=== PATIENT | female | born 1990 | race Hispanic/Latino ===

== ENCOUNTER 2018-05-09 06:52 | Outpatient (CLI) | payer BC | END 2018-05-09 06:53 | disposition home or self-care (01) | LOC: BICULT 06:52 | PROVIDERS: ATTEND Student in an Organized Health Care Education/Training Program | DX: O20.9 Hemorrhage in early pregnancy, unspecified (principal); O34.81 Maternal care for other abnormalities of pelvic organs, first trimester; Z3A.09 9 weeks gestation of pregnancy | CPT/HCPCS: 76856; 93976 ==

== ENCOUNTER 2018-12-05 13:54 | Inpatient (IN) | payer BC, OTHER ==
[2018-12-05] MEDS ORDERED: Misoprostol 200 MCG TAB PR PRN (14:30)
[2018-12-05] MEDS ORDERED: Ibuprofen 800 MG TAB PO PRN (14:30)
[2018-12-05] MEDS ORDERED: HYDROcodone/Acetaminophen 5/325 mg Tablet PO PRN ×2 (14:30)
[2018-12-05] MEDS ORDERED: Lactated Ringer's 1,000 ML IV SCH (14:30)
[2018-12-05] MEDS ORDERED: Diphenoxylate HCl/Atropine Tablet PO PRN ×2 (14:30)
[2018-12-05] MEDS ORDERED: Methylergonovine 0.2 MG/ML VIAL IM PRN (14:30)
[2018-12-05] MEDS ORDERED: NS w/ Oxytocin 10 units 500 ML IV SCH ×2 (14:30→21:00)
[2018-12-05] MEDS ORDERED: Ondansetron PF 4 MG/2 ML Vial IVP PRN ×2 (14:30→21:17)
[2018-12-05] MEDS ORDERED: Lidocaine 1% (PF) 30 ML VIAL SC PRN (14:30)
[2018-12-05] MEDS ORDERED: Carboprost 250 MCG/ML AMP IM PRN (14:30)
[2018-12-05] MEDS ORDERED: NS / Oxytocin 40 units/1000ml 1,000 ML IV PRN (14:30)
[2018-12-05] MEDS ORDERED: Acetaminophen 500 MG TAB PO PRN (14:30)
[2018-12-05] MEDS ORDERED: Promethazine HCl 25 MG/ML VIAL IM PRN ×2 (14:30→21:17)
[2018-12-05] MEDS ORDERED: Butorphanol Tartrate 1 MG/ML VIAL SLOW IVP PRN (14:30)
[2018-12-05 14:51] LABS: Hemoglobin 13.9 g/dL (12.0-16.0); Mean Corpuscular Hemoglobin 29.9 pg (27.0-31.0); Mean Corpuscular Volume 88.1 fL (78.0-98.0); Mean Platelet Volume 8.4 fL (7.4-10.4); Platelet Count 255 thou/uL (130-400); RBC Distribution Width 13.3 % (11.5-14.5); Red Blood Cell (RBC) Count 4.66 mill/uL (4.20-5.40); White Blood Cell (WBC) Count 13.5 thou/uL (4.8-10.8)
[2018-12-05 15:09] VITALS: BMI 42.0
[2018-12-05 15:28] LABS: HBSAg Index 0.19 S/CO (0-0.99); Hep B Surf Ag Non-Reactive S/CO (NonReactive); Syphilis Antibody Nonreactive (Nonreactive); Syphilis Antibody Index 0.05 S/CO (<1.00 Non-Reactive)
--- NOTE | 2018-12-05 15:42 | PDOC.LDHP ---
Labor and Delivery H&P Chief complaint: contractions, loss of fluid HPI: 28yo at 39w by LMP c/o LOF clear at 1200, painful ctx q 5-8min. Prior LTCS x 1 for FTP 7 yr ago Current gestational age (weeks): 39 Due date: 12/10/18 Dating criteria: last menstrual period Grav: 2 Para: 1 Current complications: none Abnormal US findings: No Past Medical History: hypothyroid Current medications: pre-alecai vitamins, other (levothyroxine 50mcg) Previous surgical history: low tranverse CS, other (oophorectomy) Allergies/Adverse Reactions: Allergies Allergy/AdvReac Type Severity Reaction Status Date / Time No Known Allergies Allergy Verified 06/26/13 15:40 Social history: none - Physical Exam Vital signs reviewed and normal: yes General: NAD Heart: RRR Lungs: CTAB Abdomen: gravid Extremeties: no edema FHT: category 1 [place] contractions every: 3-5min - Vaginal Exam cm dilated: 1 Effacement: 25% Station: -2 (dilapan x5 placed in cervical os under direct visualization) - OB Labs Blood type: O RH: positive Antibody Screen: negative HIV: negative RPR: negative HEPSAg: negative 1 hour GCT: negative GBS: negative Urine drug screen: negative Rubella: immune - Assessment L&D Assessment: term rupture in membranes - Plan Plan: admit to L&D, cervical ripening (with dilapan x 12 hr), labor augmentation if indicated, informed consent obtained, anesthesia consult for pain management -: Pt desires TOLAC, disc risk of uterine rupture of <1% and <2% with use of pitocin. Pt understands and wishes to proceed. consent signed.
[2018-12-05] MEDS ORDERED: Fentanyl 4 mcg/Bup 0.1% Cadd 100 ML ONE ×2 (20:30→20:38)
[2018-12-05] MEDS ORDERED: Acetaminophen 325 MG TAB PO PRN (21:17)
[2018-12-05] MEDS ORDERED: Naloxone HCl 0.4 mg/ml Vial IVP PRN ×2 (21:17)
[2018-12-05] MEDS ORDERED: diphenhydrAMINE 50 MG/ML VIAL IVP PRN (21:17)
[2018-12-05] MEDS ORDERED: Eucerin (Mineral Oil/Petrolatum,White) 30 gm Jar TOP PRN (21:17)
[2018-12-05] MEDS ORDERED: ePHEDrine/0.9% NaCl/PF SYRINGE 50 mg/10 ml SLOW IVP PRN (21:17)
[2018-12-05] MEDS ORDERED: Lactated Ringer's 500 ML IV PRN (21:17)
[2018-12-05] MEDS ORDERED: Communication Order-Pharmacy FS SCH (21:30)
[2018-12-05] MEDS ORDERED: Fentanyl 4 mcg/Bupivacaine 0.1% Cassette 100 ML EPIDURAL SCH (21:30)
[2018-12-06] MEDS ORDERED: Fentanyl 4 mcg/Bup 0.1% Cadd 100 ML ONE ×2 (04:11→13:05)
--- NOTE | 2018-12-06 08:02 | PDOC.LDPN ---
Labor & Delivery Progress Note - Subjective Subjective: comfortable - Objective Vital signs reviewed and normal: yes General: NAD Uterine fundus: non tender Dilation: 5 Effacement: 90% Station: 0 FHT: category 2 (intermittent min variability, then resumes moderate variability with accel c/w sleep cycle) IUPC placed: yes Plan: continue plan of care (cont pitocin augmentation. no e/o chorio, tmax 99)
[2018-12-06] MEDS ORDERED: Lidocaine 2% MPF 10 ML AMP (For Epidural Use) ONE (11:11)
[2018-12-06] MEDS ORDERED: Bupivacaine/Epinephrine 0.25% 30 ML VIAL ONE (11:11)
--- NOTE | 2018-12-06 13:19 | PDOC.LDPN ---
Labor & Delivery Progress Note - Subjective Subjective: comfortable, vaginal pressure - Objective Vital signs reviewed and normal: yes General: NAD Uterine fundus: non tender Dilation: 10 Effacement: 100% Station: 0 FHT: category 1 [place] contractions every: 3min Plan: continue plan of care (labor down x 30min then start pushing)
[2018-12-06] MEDS ORDERED: NS / Oxytocin 40 units/1000ml 1,000 ML ONE (13:44)
[2018-12-06] MEDS ORDERED: Ampicillin 2 GM in Sodium Chloride 0.9% 100 ML IVPB SCH (16:30)
--- NOTE | 2018-12-06 17:50 | PDOC.OPDEL ---
OB Operative/Delivery Note Delivery Dr/Surgeon: Harsh Assist: n/a Pre-Delivery Diagnosis: non-reassuring tracing, ruptured membrane Procedure/Post Delivery Dx: operative vaginal delivery () Weeks gestation: 39 Anesthesia: epidural - Findings A Sex: female Weight: 8 lb 7 oz - 1 min: 8 - 5 min: 9 - Additional Findings/Plan Placenta delivered: spontaneous Repaired Obstetrical Laceration: 3rd degree (repaired in end to end fashion with 2-0 vicryl then usual second degree repair with 2-0 vicryl, excellent hemostasis) Estimated blood loss: 951 Post delivery plan: routine recovery
[2018-12-06] MEDS ORDERED: CEFAZOLIN 2 GM in Premix Bag 1 BAG IVPB SCH (18:00)
[2018-12-06] MEDS ORDERED: Preparation H Ointment 28 GM TUBE PR PRN (18:04)
[2018-12-06] MEDS ORDERED: Lanolin Ointment 7 GM TUBE TOP PRN (18:04)
[2018-12-06] MEDS ORDERED: diphenhydrAMINE 25 MG CAP PO PRN (18:04)
[2018-12-06] MEDS ORDERED: NS / Oxytocin 40 units/1000ml 1,000 ML IV SCH (18:04)
[2018-12-06] MEDS ORDERED: Promethazine HCl 25 MG/ML VIAL IM PRN (18:04)
[2018-12-06] MEDS ORDERED: Adacel (T-DAP) 0.5 ML SYRINGE IM ONE (18:04)
[2018-12-06] MEDS ORDERED: HYDROcodone/Acetaminophen 5/325 mg Tablet PO PRN ×2 (18:04)
[2018-12-06] MEDS ORDERED: Bisacodyl 10 MG SUPP PR PRN (18:04)
[2018-12-06] MEDS ORDERED: Benzocaine/Menthol 20-0.5% 60 ML CAN TOP PRN (18:04)
[2018-12-06] MEDS ORDERED: Ondansetron PF 4 MG/2 ML Vial IVP PRN (18:04)
[2018-12-06] MEDS ORDERED: Milk Of Magnesia 30 ML UDCUP PO PRN (18:04)
[2018-12-06] MEDS: Docusate Calcium (SURFAK) 240 MG CAP PO SCH (21:39)
[2018-12-06] MEDS: Ibuprofen 800 MG TAB PO SCH (21:39)
[2018-12-07] MEDS: Ibuprofen 800 MG TAB PO SCH ×3 (05:42→22:00)
--- NOTE | 2018-12-07 07:49 | PDOC.PP ---
Post Progress Note Post Day #: 1 PO intake tolerated: yes Flatus: yes Ambulation: yes Vital Signs (12 hours) Temp Pulse Resp BP Pulse Ox 12/07/18 04:40 97.8 F 93 18 106/56 L 12/07/18 00:39 98.0 F 87 18 96/58 L 12/06/18 21:00 98.2 F 101 H 18 112/55 L 12/06/18 20:00 98.7 F 102 H 18 105/71 97 Weight Weight 230 lb - Physical Examination General: NAD Respiratory: non-labored breathing Abdominal: no distention, appropriately TTP Fundus firm & at: umb Extremities: negative homans (B) Skin: no rash Neurological: no gross focal deficits Psychiatric: normal affect Result Diagrams: 12/05/18 14:40 Additional Labs: Post Labs Blood Type O POSITIVE 12/05/18 14:40 Hep Bs Antigen Non-Reactive S/CO (NonReactive) 12/05/18 14:40 - Assessment/Plan PPD1 s/p Vacuum assist Mild tachy overnight, normalized this am. otherwise stable VS Doing well, lochia < menses PPH hgb 13.9--> qbl 951cc--> pending this am, no sx anemia Rh pos RImm Cont PP care, home tomorrow.
[2018-12-07 08:14] LABS: Hemoglobin 11.4 g/dL (12.0-16.0); Mean Corpuscular HGB CONC 32.7 g/dL (32.0-36.0); Mean Corpuscular Hemoglobin 29.4 pg (27.0-31.0); Mean Platelet Volume 8.1 fL (7.4-10.4); Platelet Count 212 thou/uL (130-400); RBC Distribution Width 13.4 % (11.5-14.5); Red Blood Cell (RBC) Count 3.88 mill/uL (4.20-5.40); White Blood Cell (WBC) Count 26.2 thou/uL (4.8-10.8)
[2018-12-07] MEDS: Docusate Calcium (SURFAK) 240 MG CAP PO SCH ×2 (09:25→22:00)
[2018-12-07] MEDS: Prenatal Vitamin 1 TAB PO SCH (09:25)
[2018-12-07] MEDS: Ferrous Sulfate 325 MG TAB PO SCH ×2 (09:26→18:47)
[2018-12-07 23:27] VITALS: TEMP 97.6
--- NOTE | 2018-12-08 06:01 | PDOC.PP ---
Post Progress Note Post Day #: 2 Subjective: Fells well, has had 2 BMs and states first was uncomfortable but second was better (3rd degree) PO intake tolerated: yes Flatus: yes Ambulation: yes Vital Signs (12 hours) Temp Pulse Resp BP 12/07/18 20:40 97.6 F 88 18 121/73 Weight Weight 230 lb Past vitals for last 24 hours reviewed - Physical Examination General: NAD Cardiovascular: no m/r/g Respiratory: clear to auscultation bilaterally, non-labored breathing Abdominal: + bowel sounds, lochia, no distention, appropriately TTP Extremities: negative homans (B) Neurological: no gross focal deficits Psychiatric: A&Ox3, normal affect Result Diagrams: 12/07/18 07:43 Additional Labs: Post Labs Blood Type O POSITIVE 12/05/18 14:40 Hep Bs Antigen Non-Reactive S/CO (NonReactive) 12/05/18 14:40 (1) Vaginal after () Code(s): O34.219 - MATERNAL CARE FOR UNSP TYPE SCAR FROM PREVIOUS DEL Status: Acute (2) Vacuum extraction, delivered, current hospitalization Code(s): O66.5 - ATTEMPTED APPLICATION OF VACUUM EXTRACTOR AND FORCEPS Status : Acute - Assessment/Plan , vacuum assisted, doing well...3rd degree lac. Plan: I discussed with her the third degree. Informatioin provided. rec stool softeners for 10 days to 14 days. Patient is ok with DC to home today. F/U in 2- 4 weeks. Vitals stable for DC
[2018-12-08] MEDS: Ibuprofen 800 MG TAB PO SCH (06:26)
[2018-12-08] MEDS: Ferrous Sulfate 325 MG TAB PO SCH (07:22)
[2018-12-08] MEDS: Prenatal Vitamin 1 TAB PO SCH (07:44)
[2018-12-08] MEDS: Docusate Calcium (SURFAK) 240 MG CAP PO SCH (07:44)
[2018-12-08 07:58] VITALS: BP 111/67
== END 2018-12-08 10:55 | disposition home or self-care (01) | DRG 768 ==
LOC: L&D/OP 13:54 → L&D 14:32 → 3SW 12-06 18:56
PROVIDERS: ADMIT Student in an Organized Health Care Education/Training Program; ATTEND Student in an Organized Health Care Education/Training Program
PROC: 10D07Z6 Extraction of Products of Conception, Vacuum, Via Natural or Artificial Opening (ICD-10-PCS; principal; 2018-12-06)
PROC: 0DQR0ZZ Repair Anal Sphincter, Open Approach (ICD-10-PCS; 2018-12-06)
PROC: 3E033VJ Introduction of Other Hormone into Peripheral Vein, Percutaneous Approach (ICD-10-PCS; 2018-12-06)
DX: O34.219 Maternal care for unspecified type scar from previous cesarean delivery (principal); Z37.0 Single live birth; O70.20 Third degree perineal laceration during delivery, unspecified; O72.1 Other immediate postpartum hemorrhage; Z3A.39 39 weeks gestation of pregnancy; O77.0 Labor and delivery complicated by meconium in amniotic fluid; O76 Abnormality in fetal heart rate and rhythm complicating labor and delivery
CPT/HCPCS: 36415; 51702; 85027; 86780; 86850; 86900; 86901; 87340; 90715; 99285; J0290; J2001; J2210; J3490; J7050

== ENCOUNTER 2021-01-22 13:22 | Outpatient (CLI) | payer BC | END 2021-01-22 13:23 | disposition home or self-care (01) | LOC: BICULT 13:22 | PROVIDERS: ATTEND Registered Nurse Community Health | DX: R10.2 Pelvic and perineal pain (principal); Z97.5 Presence of (intrauterine) contraceptive device | CPT/HCPCS: 76856 ==

== ENCOUNTER 2022-03-25 12:57 | Outpatient (CLI) | payer BC | END 2022-03-25 12:58 | disposition home or self-care (01) | LOC: ULT 12:57 | PROVIDERS: ATTEND Registered Nurse Community Health | DX: R10.32 Left lower quadrant pain (principal); N89.8 Other specified noninflammatory disorders of vagina | CPT/HCPCS: 76700; 76856 ==

== ENCOUNTER 2023-09-08 12:35 | Outpatient (CLI) | payer OTHER ==
[2023-09-08 15:22] LABS: #Basophils 0.1 10x3/uL (0.0-0.2); #Eosinphils 0.4 10x3/uL (0.0-0.5); #Monocytes 0.8 10x3/uL (0.0-1.1); %Basophils 0.7 % (0.0-2.0); %Eosinophils 2.7 % (0.0-6.0); %Lymphocytes 32.9 % (18.0-47.0); %Monocytes 5.5 % (0.0-10.0); %Neutrophils 57.3 % (40.0-75.0); Hematocrit 45.4 % (34.9-44.5); Hemoglobin 15.1 g/dL (12.0-15.5); Mean Corpuscular HGB CONC 33.3 g/dL (32.0-36.0); Mean Corpuscular Hemoglobin 28.8 pg (27.0-33.0); Mean Corpuscular Volume 86.6 fl (81.6-98.3); Mean Platelet Volume 9.9 fl (7.4-10.4); Platelet Count 323 10x3/uL (150-450); RBC Distribution Width 12.9 % (11.5-14.5); Red Blood Cell (RBC) Count 5.24 10x6/uL (3.90-5.03); White Blood Cell (WBC) Count 13.9 10x3/uL (3.5-10.5)
[2023-09-08 15:43] LABS: BHCG - Serum Negative (NEGATIVE); Pregs Control Background? CLEAR/WHITE (CLR/WHITE); Pregs Control Bar Appear? YES (CONTROL BAR)
[2023-09-08 15:46] LABS: ALT (SGPT) 26 U/L (8-55); AST (SGOT) 20 U/L (5-34); Albumin 4.3 g/dL (3.5-5.0); Alkaline Phosphatase 85 U/L (40-110); Anion Gap 18 mmol/L (10-20); BUN (Urea Nitrogen) 11 mg/dL (7.0-18.7); Bilirubin, Direct 0.2 mg/dL (0.1-0.3); Bilirubin, Total 0.5 mg/dL (0.2-1.2); Calc. Creatinine Clearance 0 mL/min (70-130); Calcium 8.9 mg/dL (7.8-10.44); Carbon Dioxide 21 mmol/L (22-29); Chloride 104 mmol/L (98-107); Estimated GFR 116; Globulin 3.3 g/dL (2.4-3.5); Glucose 62 mg/dL (70-105); Protein, Total 7.6 g/dL (6.0-8.3); Sodium 139 mmol/L (136-145)
== END 2023-09-08 12:36 | disposition home or self-care (01) ==
LOC: LABBT 12:35
PROVIDERS: ATTEND Surgery
DX: Z01.812 Encounter for preprocedural laboratory examination (principal); K80.20 Calculus of gallbladder without cholecystitis without obstruction
CPT/HCPCS: 80053; 80076; 84703; 85025

== ENCOUNTER 2023-09-14 10:38 | Day surgery (SDC) | payer OTHER ==
[2023-09-08 13:01] VITALS: BMI 34.2
[2023-09-14] MEDS ORDERED: PROPOFOL 20 ML ONE (12:45)
[2023-09-14] MEDS ORDERED: Rocuronium Bromide 10 MG/ML (10ML VIAL) ONE ×2 (12:46→13:34)
[2023-09-14] MEDS ORDERED: fentaNYL PF 100 MCG/2 ML SYRINGE ONE (12:46)
[2023-09-14] MEDS ORDERED: Bupivacaine 0.25% HCL 30 ML VIAL ONE (13:00)
[2023-09-14] MEDS ORDERED: Indocyanine Green 25 MG/10 ML VIAL ONE (13:00)
[2023-09-14] MEDS ORDERED: EPINEPHrine 1 MG/ML VIAL ONE (13:00)
[2023-09-14] MEDS ORDERED: cefOXitin 2 GM VIAL ONE (13:13)
[2023-09-14] MEDS ORDERED: Sodium Chloride 0.9% 100 ML ONE (13:13)
[2023-09-14] MEDS ORDERED: PROPOFOL 200 MG/20 ML VIAL ONE (13:34)
[2023-09-14] MEDS ORDERED: Dexamethasone 20 MG/5 ML VIAL ONE (13:34)
[2023-09-14] MEDS ORDERED: Lidocaine 1% PF 5 ML VIAL ONE (13:34)
[2023-09-14] MEDS ORDERED: Ondansetron PF 4 MG/2 ML Vial ONE ×2 (13:34→13:41)
[2023-09-14] MEDS ORDERED: Dexamethasone 4 mg/ml Vial ONE (13:41)
[2023-09-14] MEDS ORDERED: SUGAMMADEX SODIUM 200 MG/2 ML VIAL ONE (13:42)
[2023-09-14] MEDS ORDERED: ePHEDrine Sulfate 50 MG/10 ML VIAL ONE (13:43)
[2023-09-14] MEDS ORDERED: fentaNYL 50 mcg/mL 1 mL Vial ONE (14:18)
[2023-09-14] MEDS ORDERED: HYDROcodone/Acetaminophen 5/325 mg Tablet ONE (15:41)
== END 2023-09-14 16:16 | disposition home or self-care (01) ==
LOC: SDC 10:38
PROVIDERS: ATTEND Surgery
PROC: 0FT44ZZ Resection of Gallbladder, Percutaneous Endoscopic Approach (ICD-10-PCS; principal; 2023-09-14)
DX: K80.10 Calculus of gallbladder with chronic cholecystitis without obstruction (principal); Z87.59 Personal history of other complications of pregnancy, childbirth and the puerperium
CPT/HCPCS: 88304; C1776; J0171; J0694; J1100; J2405; J2704; J3010; J3490; S0020